=== PATIENT | female | born 1940 | race Caucasian/White ===

== ENCOUNTER → 2017-08-20 | Emergency (ER) | payer OTHER ==
[~2017-08-20] VITALS: Ht 157.5 cm; Wt 68.0 kg
[~2017-08-20] MED LIST: LIPITOR20 MG PO; NORVASC5 MG PO
== END | disposition home or self-care (01) ==
LOC: ER 14:32
DX: K92.1 Melena (principal)

== ENCOUNTER → 2018-01-24 | Outpatient (CLI) | payer OTHER | END | disposition home or self-care (01) | LOC: RAD 501 13:33 | DX: M25.531 Pain in right wrist (principal) ==

== ENCOUNTER → 2020-04-29 16:18 | Outpatient (CLI) | payer OTHER | END | disposition home or self-care (01) | LOC: PPH VACUNA 16:18 | PROVIDERS: ATTEND Emergency Medicine Pediatric Emergency Medicine | DX: Z23 Encounter for immunization (principal) ==

== ENCOUNTER → 2020-05-20 | Outpatient (CLI) | payer OTHER | END | disposition home or self-care (01) | LOC: PPH VACUNA 02:49 | PROVIDERS: ATTEND Emergency Medicine Pediatric Emergency Medicine | DX: Z23 Encounter for immunization (principal) ==

== ENCOUNTER 2020-07-13 08:03 | Outpatient (CLI) | payer OTHER | END 2020-07-13 08:27 | disposition home or self-care (01) | LOC: RAD 08:03 → MAMO-SONO 07-20 08:15 | PROVIDERS: ATTEND Physical Medicine & Rehabilitation | DX: M16.12 Unilateral primary osteoarthritis, left hip (principal); M25.511 Pain in right shoulder ==

== ENCOUNTER 2020-08-31 08:18 | Outpatient (CLI) | payer OTHER | END 2020-08-31 08:32 | disposition home or self-care (01) | LOC: SONOGRAMA 08:18 | PROVIDERS: ATTEND Physical Medicine & Rehabilitation | DX: M75.31 Calcific tendinitis of right shoulder (principal) ==

== ENCOUNTER 2021-02-06 15:25 | Outpatient (CLI) | payer OTHER | END 2021-02-06 15:30 | disposition home or self-care (01) | LOC: PPH VACUNA 15:25 | PROVIDERS: ATTEND Emergency Medicine Pediatric Emergency Medicine | DX: Z23 Encounter for immunization (principal) ==

== ENCOUNTER 2021-06-07 07:56 | Outpatient (CLI) | payer OTHER | END 2021-06-07 07:57 | disposition home or self-care (01) | LOC: TOM 07:56 | PROVIDERS: ATTEND Physical Medicine & Rehabilitation | DX: M72.2 Plantar fascial fibromatosis (principal); M25.552 Pain in left hip ==

== ENCOUNTER 2021-07-03 08:25 | Outpatient (CLI) | payer OTHER | END 2021-07-03 08:34 | disposition home or self-care (01) | LOC: MAMO-SONO 08:25 | PROVIDERS: ATTEND Obstetrics & Gynecology | DX: N60.29 Fibroadenosis of unspecified breast (principal); N63.0 Unspecified lump in unspecified breast ==

== ENCOUNTER 2021-08-07 15:27 | Outpatient (CLI) | payer OTHER | END 2021-08-07 15:32 | disposition home or self-care (01) | LOC: RAD 15:27 | PROVIDERS: ATTEND Ophthalmology | DX: H25.011 Cortical age-related cataract, right eye (principal); Z98.41 Cataract extraction status, right eye ==

== ENCOUNTER 2021-08-23 08:00 | Outpatient (CLI) | payer OTHER | END 2021-08-23 08:30 | disposition home or self-care (01) | LOC: PPH VACUNA 08:00 | PROVIDERS: ATTEND Emergency Medicine Pediatric Emergency Medicine | DX: Z23 Encounter for immunization (principal) ==

== ENCOUNTER 2022-01-03 08:05 | Outpatient (CLI) | payer OTHER | END 2022-01-03 08:06 | disposition home or self-care (01) | LOC: NUCLEAR 08:05 | PROVIDERS: ATTEND Obstetrics & Gynecology | DX: M81.0 Age-related osteoporosis without current pathological fracture (principal); Z88.2 Allergy status to sulfonamides ==

== ENCOUNTER 2022-02-19 13:11 | Outpatient (CLI) | payer OTHER | END 2022-02-19 13:21 | disposition home or self-care (01) | LOC: PPH VACUNA 13:11 | PROVIDERS: ATTEND Emergency Medicine Pediatric Emergency Medicine | DX: Z23 Encounter for immunization (principal) ==

== ENCOUNTER 2023-01-17 09:06 | Outpatient (CLI) | payer OTHER | END 2023-01-17 09:23 | disposition home or self-care (01) | LOC: MAMO-SONO 09:06 | PROVIDERS: ATTEND Specialist | DX: Z12.31 Encounter for screening mammogram for malignant neoplasm of breast (principal); N63.0 Unspecified lump in unspecified breast ==

== ENCOUNTER 2024-01-20 10:00 | Outpatient (CLI) | payer OTHER | END 2024-01-20 16:58 | disposition home or self-care (01) | LOC: MAMO-SONO 10:00 | DX: N63.0 Unspecified lump in unspecified breast (principal); Z12.31 Encounter for screening mammogram for malignant neoplasm of breast ==

== ENCOUNTER → 2024-07-21 10:58 | Outpatient (CLI) | payer OTHER ==
[2024-07-21 11:32] LABS: HEMATOCRIT 40.4 % (36.0-45.00); HEMOGLOBIN 13.3 g/dL (12.0-15.00); MEAN CELL VOLUME 83.1 fL (80.00-100.00); MEAN CORPUSCULAR HEMOGLOBIN 27.3 pg (27.00-32.0); MEAN CORPUSCULAR HGB CONC 32.9 g/dl (32.0-36.0); PLATELET COUNT 255 K/uL (150-450); RED BLOOD COUNT 4.87 M/uL (4.00-6.00); RED CELL DISTRIBUTION WIDTH 14.1 % (11.5-14.5)
[2024-07-21 11:55] LABS: ERYTHROCYTE SEDIMENTATION RATE 26 mm/hr
[2024-07-21 12:08] LABS: CREATININE SERUM 0.74 mg/dL (0.55-1.02)
== END | disposition home or self-care (01) ==
LOC: LAB 10:58
PROVIDERS: ATTEND Radiology Diagnostic Radiology
DX: K57.32 Diverticulitis of large intestine without perforation or abscess without bleeding (principal); R10.9 Unspecified abdominal pain; E03.9 Hypothyroidism, unspecified

== ENCOUNTER 2024-07-22 07:38 | Outpatient (CLI) | payer OTHER | END 2024-07-22 07:41 | disposition home or self-care (01) | LOC: TOM 07:38 | PROVIDERS: ATTEND Internal Medicine Gastroenterology | DX: K57.32 Diverticulitis of large intestine without perforation or abscess without bleeding (principal) | CPT/HCPCS: 74177; Q9965 ==

== ENCOUNTER 2025-03-02 07:37 | Outpatient (CLI) | payer OTHER | END 2025-03-02 07:43 | disposition home or self-care (01) | LOC: MAMO-SONO 07:37 | PROVIDERS: ATTEND Specialist | DX: N63.0 Unspecified lump in unspecified breast (principal); Z12.31 Encounter for screening mammogram for malignant neoplasm of breast ==